=== PATIENT | male | born 1975 | race Hispanic/Latino ===

== ENCOUNTER 2020-01-05 10:22 | Emergency (ER) | payer BC, MEDICAID, SELFPAY ==
[2020-01-05 10:25] VITALS: BP 150/85; PULSE 82; RESP 16; TEMP 36.6; O2SAT 100
--- NOTE | 2020-01-05 10:56 | ED.GENADULT ---
HPI - General Adult General Chief complaint: Wound/Laceration <JOHN Villa Last Filed: 01/05/20 11:02> Stated complaint: wound right leg <JOHN Villa Last Filed: 01/05/20 11:02> Time Seen by Provider: 01/05/20 10:48 <JOHN Villa Last Filed: 01/05/20 11:02> Source: patient <JOHN Villa Last Filed: 01/05/20 11:02> Mode of arrival: ambulatory <JOHN Villa Last Filed: 01/05/20 11:02> Limitations: no limitations <JOHN Villa Last Filed: 01/05/20 11:02> History of Present Illness HPI narrative: Patient is a 44-year-old male who presents to emergency department for evaluation of wound to the posterior aspect of the right thigh been there 1 week was red tender swollen drained out purulent drainage and is now improving patient notes mild aching pain worse with palpation patient denies any fever chills nausea vomiting are immunocompromise <Tab Lin PA-C Last Filed: 01/05/20 11:02> Related Data Allergies/adverse reactions: Allergies Allergy/AdvReac Type Severity Reaction Status Date / Time No Known Allergies Allergy Verified 01/05/20 10:29 <JOHN Villa Last Filed: 01/05/20 11:02> Review of Systems Review of Systems: Narrative: CONSTITUTIONAL: Denies fever, chills, or sweats. SKIN: Positive for wound to the posterior right thigh MUSCULOSKELETAL: Denies back pain, joint pain NEUROLOGIC: Denies headache, or weakness. <JOHN Villa Last Filed: 01/05/20 11:02> [facility] Family History Family History: Family History (Updated 08/21/19 @ 05:37 by Kristina Dorman RN) Mother Obstructive sleep apnea Diabetes 1.5, managed as type 2 Hypercholesterolemia Schizo-affective schizophrenia Hypertension Father Obstructive sleep apnea no history of jose Pancreatic cancer Sibling Unknown family medical history <JOHN Villa Last Filed: 01/05/20 11:02> Social History Social History: Social History Smoking packs per day: 3 Smoking cigarettes per day: 60.0 Years smoked: 4 Smoking pack-years: 12.00 Smoking status: Current every day smoker Tobacco type: cigarettes Alcohol intake: current Substance use: current Substance use type: crack/cocaine Last use: Approximately 1 week ago Gender identity (if verbalized by the patient): Male <Tab Lin PA-C - Last Filed: 01/05/20 11:02> Exam Narrative: Exam Narrative: GENERAL: Well-appearing, well-nourished, and in no acute distress. HEAD: Normocephalic, atraumatic. EYES: PERRLA and EOMI. ENT: Nares clear, no rhinorrhea or epistaxis. Mucous membranes moist. EXTREMITIES: Normal range of motion. No edema. SKIN: Warm, dry, no rash. Patient with half centimeter open wound with small amount of purulent drainage no erythema NEURO: No focal deficits. Alert and oriented x3. Neurovascularly intact PSYCH: Normal mood and affect. <Tab Lin PA-C - Last Filed: 01/05/20 11:02> Course Course Emergency Course: Patient in the room in no distress aware of case findings treatment plan and diagnosis agreeing to follow-up as directed. Patient afebrile nontoxic-appearing no distress felt appropriate for outpatient reevaluation <Tab Lin PA-C - Last Filed: 01/05/20 11:02> Vital Signs Vital signs: Vital Signs Temperature 36.6 C 01/05/20 10:25 Pulse Rate 82 01/05/20 10:25 Respiratory Rate 16 01/05/20 10:25 Blood Pressure 150/85 H 01/05/20 10:25 Pulse Oximetry 100 01/05/20 10:25 Temperature 36.6 C 01/05/20 10:25 Pulse Rate 82 01/05/20 10:25 Respiratory Rate 16 01/05/20 10:25 Blood Pressure 150/85 H 01/05/20 10:25 Pulse Oximetry 100 01/05/20 10:25 <Tab Lin PA-C - Last Filed: 01/05/20 11:02> Vital Signs Temperature 36.6 C 01/05/20 10:25 Pulse Ra
== END 2020-01-05 11:18 | disposition home or self-care (01) ==
PROVIDERS: Emergency Provider Emergency Medicine
DX: L02.415 Cutaneous abscess of right lower limb (principal)
CPT/HCPCS: 99283

== ENCOUNTER 2023-05-30 15:25 | Observation (INO) | payer BC, SELFPAY ==
[2023-05-30] VITALS (20 sets, daily range): BP systolic 118–144; BP diastolic 53–76; PULSE 82–96; RESP 13–23; TEMP 36.3–36.8; O2SAT 97–100; BMI 28.8; BMI 28.3
--- NOTE | ~2023-05-30 | CT_ITS ---
EXAMINATION: CT abdomen pelvis w con DATE: 05/31/2023 09:11 INDICATION: Weight loss. Anemia. TECHNIQUE: Computed tomography (CT) of the abdomen and pelvis was performed with 100 mL Omnipaque 350 intravenous contrast. Automated exposure control and iterative reconstruction technique were employe d. The dose-length product was 917.74 mGy-cm. COMPARISON: None. FINDINGS: The visualized portions of the lung bases demonstrate mild atelectasis. No pleural effusion . There is a large sliding hiatal hernia. Cardiomegaly is noted. No pericardial effusion. The liver, gallbladder, pancreas, and right adrenal gland are normal. There is a 9 mm mass in left adrenal gland measuring soft tissue attenuation, likely an adenoma. The kidneys are normal. There is diverticulosi s of the colon without evidence of diverticulitis. There is focal small-caliber of the sigmoid colon. The appendix is normal. There are no pathologically enlarged lymph nodes. There is no free intraperi toneal fluid. There is a left-sided inferior vena cava. There is a right inguinal hernia containing f at. There is mild thoracic and lumbar spondylosis. IMPRESSION: 1. Focal small caliber of the sigmoid colon, which may be a transient finding or a persistent strictu re suspicious for malignancy. The patient is already scheduled for a colonoscopy. 2. Large sliding hiatal hernia. Reviewed, dictated and finalized at location A. IMPRESSION: 1. Focal small caliber of the sigmoid colon, which may be a transient finding o r a persistent stricture suspicious for malignancy. The patient is already sche duled for a colonoscopy. 2. Large sliding hiatal hernia.
--- NOTE | ~2023-05-30 | XR_ITS ---
EXAMINATION: XR UGI w barium swallow DATE: 06/01/2023 17:16 INDICATION: Gastrointestinal bleed an incomplete endoscopy. TECHNIQUE: The patient drank thick barium, gas-producing crystals, and thin barium. A total of 651 fl uoroscopic images of the esophagus, stomach, and proximal small bowel were obtained. Fluoroscopy expo sure time was 2.1 minutes. COMPARISON: CT dated 05/31/2023 FINDINGS: The esophagus is normal without mass or stricture. Esophageal motility is normal. There is a moderate-sized hiatal hernia with appearance on the current study suggesting a paraesophageal herni a however review of prior CT demonstrates the gastric esophageal junction position approximately 3 cm above level of the thoracic hiatus consistent with a sliding-type hiatal hernia but with cephalad ex tension of the herniated fundus of the stomach above level of the gastroesophageal junction. Recurren t episodes of gastroesophageal reflux of a large amount of contrast through the level of at least the mid esophagus was observed with provocative maneuvers. The stomach is otherwise normal. The proximal small bowel is normal. IMPRESSION: 1. Moderate-sized sliding-type hiatal hernia with recurrent prominent gastroesophageal reflux with pr ovocative maneuvers. Reviewed, dictated and finalized at location A. IMPRESSION: 1. Moderate-sized sliding-type hiatal hernia with recurrent prominent gastroeso phageal reflux with provocative maneuvers.
--- NOTE | ~2023-05-30 | XR_ITS ---
EXAMINATION: XR chest 2V DATE: 05/30/2023 16:00 INDICATION: Chest pain TECHNIQUE: PA and lateral views of the chest are obtained. COMPARISON: 08/20/2019 FINDINGS: The lungs are free of acute opacities. No pleural effusion or pneumothorax. The heart size is normal. There is mild thoracic spondylosis. There is a large hiatal hernia. IMPRESSION: 1. No acute cardiopulmonary abnormality. Reviewed, dictated and finalized at location A.
--- NOTE | 2023-05-30 15:28 | ECG_ITS ---
Measurements Intervals [place] Rate: 93 P: 26 TN: 168 QRS: 70 QRSD: 91 T: 36 QT: 354 QTc: 440 Interpretive Statements SINUS RHYTHM POSSIBLE RIGHT VENTRICULAR CONDUCTION DELAY [RSR (QR) IN V1/V2] COMPARED TO ECG 08/20/2019 23:19:26 NO SIGNIFICANT CHANGES Electronically Signed On 05-31-2023 11:12:22 CDT by Ellie Gates M.D.
[2023-05-30 15:41] LABS: Basophils Absolute Auto 0.1 K/mm3 (0.0-0.1); Basophils Percent Auto 0.8 % (0.2-1.2); Eosinophils Percent Auto 0.3 % (0-4.4); Hematocrit 21.7 % (42.0-52.0); Immature Granulocyte Absolute 0.02 K/mm3 (0.00-0.031); Immature Granulocyte Percent A 0.3 % (0-0.5); Lymphocytes Absolute Auto 1.03 K/mm3 (0.9-3.2); Lymphocytes Percent Auto 16.2 % (18.3-44.2); Mean Corpuscular HGB Conc 23.5 g/dl (32-36); Mean Corpuscular Hemoglobin 13.9 pg (26-34); Monocytes Absolute Auto 0.5 K/mm3 (0.1-0.6); Monocytes Percent Auto 7.4 % (2.6-8.5); Neutrophils Absolute Auto 4.8 K/mm3 (1.3-6.7); Nucleated Red Blood Cells Perc 0.3 % (0.0-0.2); Platelet Count Result 304 k/mm3 (150-375); Red Blood Count 3.68 M/mm3 (4.6-6.20); Red Cell Distribution Width 23.3 % (11.5-14.5); White Blood Count 6.4 K/mm3 (4.5-10.0)
[2023-05-30 15:50] LABS: Alanine Aminotransferase 21 U/L (6-50); Albumin Level 4.8 g/dL (3.5-5.1); Alkaline Phosphatase 46 U/L (38-126); Anion Gap 11 mmol/L (8-16); Aspartate Amino Transferase 23 U/L (17-59); Bilirubin,Total 0.7 mg/dL (0.2-1.3); Blood Urea Nitrogen 11 mg/dL (9-20); Carbon Dioxide 22 mmol/L (22-30); Chloride 105 mmol/L (98-107); Estimated Glomerular Filt Rate > 60; Glucose 90 mg/dL (65-110); Lipase 127 U/L (23-300); Sodium 138 mmol/L (137-145)
[2023-05-30 15:52] LABS: Hemoglobin 5.1 g/dL (14.0-18.0)
[2023-05-30 16:01] LABS: Troponin I < 0.012 ng/mL (0.000-0.034)
[2023-05-30 16:02] LABS: Partial Thromboplastin Time 28.8 SECONDS (22.3-36.8)
[2023-05-30 16:09] LABS: Platelet Estimate Adequate (Adequate)
[2023-05-30 16:12] LABS: Anisocytosis 3+ (NORMAL); Hypochromasia 2+ (NORMAL); Schistocytes None Seen (NORMAL)
[2023-05-30 16:13] LABS: Microcytosis 2+ (NORMAL)
--- NOTE | 2023-05-30 16:57 | ED.GENADULT ---
HPI - General Adult General Chief complaint: Chest Pain Stated complaint: high blood pressure/chest pressure/decreased visio Time Seen by Provider: 05/30/23 16:29 History of Present Illness HPI narrative: Patient is a 48-year-old male who presents ER with reports of high blood pressure and chest discomfort. Patient reports a couple days ago he had some cramping left-sided chest pain as well as pain in his right back and shoulder. Eugene like muscle cramps. He also reports he has had increased heartburn in his epigastrium for last couple of weeks but its been a chronic issue and he tries to avoid spicy food. No dark black stools. No syncope. No exertional dyspnea. Patient has history of anemia. He did complete a anemia work-up. He no longer takes iron. Related Data Allergies Allergy/AdvReac Type Severity Reaction Status Date / Time No Known Allergies Allergy Verified 01/05/20 10:29 Review of Systems Review of Systems: All systems reviewed & are unremarkable except as noted in HPI and below Constitutional: Constitutional: Denies chills and Denies fever(s) ENT: Denies nasal congestion and Denies sore throat Cardiovascular: Cardiovascular: Reports chest pain, Denies rapid heart rate and Denies radiating jaw, neck or arm pain Respiratory: Respiratory: Denies cough and Denies dyspnea Gastrointestinal: Gastrointestinal: Denies abdominal pain, Reports heartburn, Denies diarrhea, Denies nausea and Denies vomiting Musculoskeletal: Musculoskeletal: Reports back pain, Denies arthralgias, Denies joint swelling and Reports muscle cramps Neurologic: Denies syncope, Denies focal weakness and Denies numbness PMFSH Past Medical History Medical History (Updated 05/30/23 @ 18:45 by Enrique Ceballos MD) Anemia Surgical History Surgical History (Updated 05/30/23 @ 18:45 by Enrique Ceballos MD) No pertinent past surgical history Family History Family History (Updated 08/21/19 @ 05:37 by Kristina Dorman RN) Mother Obstructive sleep apnea Diabetes 1.5, managed as type 2 Hypercholesterolemia Schizo-affective schizophrenia Hypertension Father Obstructive sleep apnea no history of jose Pancreatic cancer Sibling Unknown family medical history Social History Social History Smoking packs per day: 3 Smoking cigarettes per day: 60.0 Years smoked: 4 Smoking pack-years: 12.00 Smoking status: Current every day smoker Tobacco type: cigarettes Alcohol intake: current Alcohol use details: socially Substance use: current Substance use type: crack/cocaine Last use: Approximately 1 week ago Gender identity (if verbalized by the patient): Male Exam Narrative: GENERAL: Well-appearing, well-nourished, and in no acute distress. HEAD: Normocephalic, atraumatic. EYES: PERRL and EOMI. ENT: Mucous membranes moist. CHEST: Clear to auscultation. No respiratory distress. HEART: Regular rate and rhythm. Normal peripheral pulses. ABDOMEN: Soft, nontender, nondistended, Hemoccult positive stool without gross blood. EXTREMITIES: Normal range of motion. No edema. SKIN: Warm, dry, pale, no rash. NEURO: Alert and oriented x3. PSYCH: Normal mood and affect. Course Course Emergency Course: Patient resting comfortably. Discussed lab results. Admit to the hospitalist service. Blood transfusion ordered. I have also consulted GI. Patient will be on a clear liquid diet and will be n.p.o. at midnight. Vital Signs Vital signs: Vital Signs Temperature 98.2 F 05/30/23 16:04 Pulse Rate 92 05/30/23 16:04 Respiratory Rate 16 05/30/23 16:04 Blood Pressure 144/67 H 05/30/23 16:04 Pulse Oximetry 100 05/30/23 16:04 Oxygen Delivery Room Air 05/30/23 16:04 Temperature 98.2 F 05/30/23 16:04 Pulse Rate 85 05/30/23 17:58 Respiratory Rate 17 05/30/23 17:58 Blood Pressure 118/56 L 05/30/23 17:58 Pulse Oximetry
[2023-05-30] MEDS: PANTOPRAZOLE SODIUM IV 40 MG VIAL IV PUSH ×2 (17:15→21:45)
[2023-05-30] MEDS: ASPIRIN 81 MG CHEWABLE TABLET 324 MG PO (17:15)
--- NOTE | 2023-05-30 18:49 | ADMGEN ---
This patient, Satya Felton, was admitted to [facility] Surg Room 303-01. Patient/family oriented to hospital policies and general routines including ID bracelet, bed and alarms, visiting hours, pain management, procedures, bathroom and other care routines, personal items, smoking policy, room service/diet, and visiting hours. Information on how to activate the Rapid Response Team has been discussed. Patient/Family are encouraged to report perceived risks to care and to ask questions if they do not understand what they are told or what they should do.
--- NOTE | 2023-05-30 20:04 | PM.IMHP ---
H&P: HPI History of Present Illness Date/Time: 05/30/23 20:04 Chief Complaint: chest pain Narrative: This is a 47-year-old male patient who used to drink heavily in the past but stated he has not drank any alcohol since this past October. Patient also stated that he used to use drugs including methamphetamines but has stop using methamphetamines this year .the patient has a history of hypertension but is not on any medication. the patient has been having some left-sided chest pain that has been going on for the last couple days. he felt like he has been having muscle cramps. the patient feels like he may have acid feflux and has been trying to avoid spicy food recently no dark stools no syncope no exertional dyspnea he does have a history of anemia and he did have anemia workup in the past and no longer takes iron. His H&H was initially 5.1 and 21.6. repeat H&H is 4.5 and 19.8. Patient was typed and cross-matched any emergent but no blood transfusion was ordered. i did order him some blood when I assessed him and ordered a full anemia panel. The patient stated that he lost 15 lb this past year but is not having any abdominal pain. The patient is pale and he stated that he sometimes gets blisters on his arms that pop up for for no reason. The patient asked for an hiv screen and std screening. He is not on any anticoagulation. he is being admitted to observation status on 05/30/2023 Review of Systems Review of Systems: All systems reviewed & are unremarkable except as noted in HPI and below Constitutional: Constitutional: Reports as per HPI and Reports no additional constitutional complaints Eyes: Eyes: Reports as per HPI and Reports no additional eye complaints ENT: Reports system reviewed and no additional complaints, except as documented and Reports Normal hearing present Cardiovascular: Cardiovascular: Reports no additional cardiovascular complaints Respiratory: Respiratory: Reports no additional respiratory complaints and Reports no additional respiratory complaints Gastrointestinal: Gastrointestinal: Reports as per HPI and Reports no additional gastrointestinal complaints Musculoskeletal: Musculoskeletal: Reports no additional musculoskeletal complaints Integumentary/Breasts: Skin/Breast: Reports system reviewed and no additional complaints, except as docu and Reports as per HPI Neurologic: Reports system reviewed and no additional complaints, except as documented, Reports as per HPI and Reports Normal hearing present Psychiatric: Psychiatric: Reports no additional psychiatric complaints and Reports as per HPI Endocrine: Endocrine: Reports no additional endocrine complaints Hematologic/Lymphatic: Hematologic/Lymphatic: Reports no additional hematologic/lymphatic complaints Allergic/Immunologic: Allergic/Immunologic: Reports no additional allergic/immunologic complaints [facility] Past Medical History Medical History (Updated 05/31/23 @ 00:35 by Amarilis Boswell NP) Anemia History of alcohol abuse History of amphetamine abuse HTN (hypertension), benign Surgical History Surgical History (Updated 05/30/23 @ 18:45 by Enrique Ceballos MD) No pertinent past surgical history Family History Family History Mother Obstructive sleep apnea Diabetes 1.5, managed as type 2 Hypercholesterolemia Schizo-affective schizophrenia Hypertension Father Obstructive sleep apnea no history of jose Pancreatic cancer Sibling Unknown family medical history Social History Social History (Updated 05/31/23 @ 00:36 by Amarilis Boswell NP) Social History: He is single and lives with his mother to help take care of his mother and his brother also lives with him as well. 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
[2023-05-30 23:30] LABS: Basophils Percent Auto 0.8 % (0.2-1.2); Eosinophils Absolute Auto 0.1 K/mm3 (0-0.3); Eosinophils Percent Auto 1.1 % (0-4.4); Immature Granulocyte Absolute 0.01 K/mm3 (0.00-0.031); Immature Granulocyte Percent A 0.2 % (0-0.5); Immature Platelet Fraction Pct 4.5 % (0.9-11.2); Immature Reticulocyte Fraction 21.9 % (3.0-15.9); Lymphocytes Absolute Auto 1.37 K/mm3 (0.9-3.2); Lymphocytes Percent Auto 26.2 % (18.3-44.2); Mean Corpuscular HGB Conc 22.7 g/dl (32-36); Mean Corpuscular Hemoglobin 13.4 pg (26-34); Mean Corpuscular Volume 58.8 fl (80-100); Monocytes Absolute Auto 0.4 K/mm3 (0.1-0.6); Neutrophils Absolute Auto 3.3 K/mm3 (1.3-6.7); Neutrophils Percent Auto 63.7 % (45.5-73.1); Platelet Count Result 264 k/mm3 (150-375); Red Blood Count 3.37 M/mm3 (4.6-6.20); Reticulocyte Hemoglobin Conten 12.5 pg (28.2-35.7); Reticulocyte Percent 1.72 % (0.7-4.3); Reticulocytes Absolute 0.06 M/mm3 (0.02-0.1); White Blood Count 5.2 K/mm3 (4.5-10.0)
[2023-05-30 23:33] LABS: Bilirubin,Total 0.6 mg/dL (0.2-1.3); Lactate Dehydrogenase 103 U/L (120-246)
[2023-05-30 23:42] LABS: Transferrin 297 mg/dL (206-381)
[2023-05-30] MEDS: SODIUM CHLORIDE 0.9% IV 250 ML 30 ML IV CONT (23:43)
[2023-05-30 23:53] LABS: Hematocrit 19.8 % (42.0-52.0); Hemoglobin 4.5 g/dL (14.0-18.0)
[2023-05-31] VITALS (20 sets, daily range): BP systolic 110–136; BP diastolic 53–76; PULSE 66–83; RESP 13–18; TEMP 36.1–36.8; O2SAT 100
[2023-05-31 00:12] LABS: Anisocytosis 2+ (NORMAL); Hypochromasia 2+ (NORMAL); Microcytosis 2+ (NORMAL); Platelet Estimate Adequate (Adequate); Schistocytes None Seen (NORMAL)
[2023-05-31 00:41] LABS: Folic Acid 11.3 ng/mL (2.76->20)
[2023-05-31 01:10] LABS: Iron 15 ug/dL (49-181)
[2023-05-31 01:20] LABS: Percent Iron Saturation 3 % (20-50)
[2023-05-31 01:47] LABS: Ferritin 2.65 ng/mL (17.9-464)
[2023-05-31] MEDS: FAMOTIDINE 20 MG/2 ML VIAL IV PUSH ×3 (02:46→21:29)
--- NOTE | 2023-05-31 07:12 | WPDGICN ---
Assessment and Plan Assessment and plan (1) Iron deficiency anemia: Code(s): D50.9 - Iron deficiency anemia, unspecified Status: Acute Assessment and Plan: He states that he was told a few years ago that he was slightly anemic but nothing was done about it. He is certain he has not had a blood transfusion. He has not seen blood in his stools. He is not aware of any family history of anemia. (2) Occult GI bleeding: Code(s): R19.5 - Other fecal abnormalities Status: Acute Assessment and Plan: His severe microcytic anemia and low iron suggest chronic gastrointestinal blood loss. We will schedule him for EGD and colonoscopy to be done tomorrow. (3) Obesity: Code(s): E66.9 - Obesity, unspecified Status: Acute Assessment and Plan: His weight he states is stable. (4) Tobacco abuse: Code(s): Z72.0 - Tobacco use Status: Acute Assessment and Plan: He has been a smoker and had abused other drugs as well including methamphetamine. He states he drink a lot until earlier this year. Plan Begin IV fluids. Start bowel prep for colonoscopy with EGD to be done tomorrow. Keep hemoglobin over 7. GI Consult Note Consult date/time: 05/31/23 07:12 HPI: Satya Felton is a 48 year old male who presented to the emergency room yesterday with complaints of chest pain on the left side. He was found to be markedly anemic with a hemoglobin initially of 5 and repeat was 4.5. The only 1 we have to compare that to was from 4 years ago when he had a hemoglobin of 8.9. He denies seeing blood in his stools. He denies black or tarry stools. He does not use NSAIDs. He states he does get heartburn frequently and was actually wondering what he should eat to avoid it. He occasionally takes Prilosec OTC which helps. He denies dysphagia. Denies weight loss. He has no abdominal pain. No history of liver disease or other gastrointestinal issues. He had a colonoscopy somewhere in [place] he believes about 5 years ago and cannot recall why that was done. He received 2 units of blood last night. Repeat H&H is not available. I noticed that he does not have IV fluids and he is NPO. He is quite thirsty. Review of Systems Review of Systems: All systems reviewed & are unremarkable except as noted in HPI and below PMFSH Past Medical History Medical History Anemia History of alcohol abuse History of amphetamine abuse HTN (hypertension), benign Surgical History Surgical History No pertinent past surgical history Family History Family History Mother Obstructive sleep apnea Diabetes 1.5, managed as type 2 Hypercholesterolemia Schizo-affective schizophrenia Hypertension Father Obstructive sleep apnea no history of jose Pancreatic cancer Sibling Unknown family medical history Social History Social History Social History: He is single and lives with his mother to help take care of his mother and his brother also lives with him as well. 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 Last use: Approximately 1 week ago charted by ED. Lack of Transportation: YES Lack of Food: Never True
[2023-05-31 07:57] LABS: Basophils Absolute Auto 0.1 K/mm3 (0.0-0.1); Basophils Percent Auto 1.1 % (0.2-1.2); Eosinophils Absolute Auto 0.1 K/mm3 (0-0.3); Eosinophils Percent Auto 1.3 % (0-4.4); Hematocrit 24.4 % (42.0-52.0); Immature Granulocyte Absolute 0.01 K/mm3 (0.00-0.031); Immature Granulocyte Percent A 0.2 % (0-0.5); Immature Platelet Fraction Pct 4.2 % (0.9-11.2); Lymphocytes Absolute Auto 0.92 K/mm3 (0.9-3.2); Lymphocytes Percent Auto 19.4 % (18.3-44.2); Mean Corpuscular HGB Conc 24.6 g/dl (32-36); Mean Corpuscular Hemoglobin 15.6 pg (26-34); Mean Corpuscular Volume 63.4 fl (80-100); Monocytes Absolute Auto 0.4 K/mm3 (0.1-0.6); Monocytes Percent Auto 8.6 % (2.6-8.5); Neutrophils Absolute Auto 3.3 K/mm3 (1.3-6.7); Neutrophils Percent Auto 69.4 % (45.5-73.1); Nucleated Red Blood Cells Perc 0.4 % (0.0-0.2); Platelet Count Result 258 k/mm3 (150-375); Red Blood Count 3.85 M/mm3 (4.6-6.20); Red Cell Distribution Width 26.5 % (11.5-14.5); White Blood Count 4.8 K/mm3 (4.5-10.0)
[2023-05-31 08:08] LABS: Lactic Acid Reflex 0.7 mmol/L (0.7-2.0)
[2023-05-31 08:18] LABS: Alanine Aminotransferase 19 U/L (6-50); Albumin Level 4.2 g/dL (3.5-5.1); Alkaline Phosphatase 44 U/L (38-126); Anion Gap 7 mmol/L (8-16); Aspartate Amino Transferase 24 U/L (17-59); Bilirubin,Total 0.8 mg/dL (0.2-1.3); Blood Urea Nitrogen 10 mg/dL (9-20); Calcium 8.7 mg/dL (8.4-10.2); Carbon Dioxide 25 mmol/L (22-30); Chloride 106 mmol/L (98-107); Estimated CRCL calculation 102 ml/min; Estimated Glomerular Filt Rate > 60; Glucose 86 mg/dL (65-110); Magnesium 1.8 mg/dL (1.6-2.3); Potassium 3.9 mmol/L (3.4-5.0); Sodium 138 mmol/L (137-145)
[2023-05-31] MEDS: SODIUM CHLORIDE 0.9% IV 1,000 ML 100 ML IV CONT (08:48)
[2023-05-31] MEDS: PANTOPRAZOLE SODIUM IV 40 MG VIAL IV PUSH ×2 (08:49→21:28)
[2023-05-31 08:52] LABS: HIV 1/2 Ab P24 Ag Result Negative (Negative)
[2023-05-31 08:53] LABS: Platelet Estimate Adequate (Adequate)
[2023-05-31 08:54] LABS: Anisocytosis 2+ (NORMAL); Hypochromasia 1+ (NORMAL); Ovalocytes 1+ (NORMAL); Poikilocytosis 2+ (NORMAL); Tear Drop Cells 1+ (NORMAL)
[2023-05-31 08:55] LABS: Large Platelets Present; Schistocytes Rare (NORMAL)
[2023-05-31] MEDS: BISACODYL 5 MG TABLET EC 10 MG PO ×3 (12:13→21:28)
--- NOTE | 2023-05-31 13:32 | PM.IMPN ---
Progress Note: A&P Assessment and Plan (1) Anemia: Code(s): D64.9 - Anemia, unspecified Status: Acute Assessment and Plan: Patient presented to the ED due to shortness of breath and fatigue, he has beend losing weight w/o trying. He was found to have H&H of 5.1/21.7. Patient received 2 units of blood and repeat H&H was 6/24.4 then 2 more units were ordered GI has been consulted. h and h every 6h. Low iron, % saturation and ferritin. Normal B12, folate, TSH, TIBC and transferrin. CT abdomen pelvis revealing focal small caliber of sigmoid colon which may be transient finding or a persistent stricture suspicious for malignancy. EGD colonoscopy planned for tomorrow. (2) Occult GI bleeding: Code(s): R19.5 - Other fecal abnormalities Status: Acute Assessment and Plan: GI has been consulted. h and h every 6h. (3) Tobacco abuse: Code(s): Z72.0 - Tobacco use Status: Acute Assessment and Plan: He has been counseled on smoking cessation for approximately 5 minutes Subjective Date/time seen: 05/31/23 13:32 Interval history: Patient states that he has been having intermittent fatigue and shortness a breath since end of 2021. It has gotten progressively worse. He denies any melena or hematochezia in the stool. He does get intermittent chest pain that he describes as heartburn. He has not had any changes in caliber of stool but has had weight loss. Patient feeling better since he has gotten blood transfusion. Plan for colonoscopy and EGD tomorrow Exam Narrative: GENERAL: Comfortable, no acute distress HENMT: moist mucous membranes EYES: EOM intact b/l NECK: no lymphadenopathy RESPIRATORY: clear to auscultation CARDIO: RRR GI: soft, nontender, bowel sounds present SKIN: no rashes EXTREMITIES: no edema, redness or tenderness Objective Data Vital Signs Vital Signs: Vital Signs - 24 hr 05/30/23 16:04 05/30/23 16:27 05/30/23 16:29 Temperature 98.2 F Pulse Rate 92 96 85 Respiratory Rate 16 23 H 16 Blood Pressure 144/67 H 132/75 Pulse Oximetry 100 100 Oxygen Delivery Room Air 05/30/23 16:30 05/30/23 16:31 05/30/23 16:45 Temperature Pulse Rate 87 83 89 Respiratory Rate 13 21 H 23 H Blood Pressure 123/68 Pulse Oximetry 100 97 Oxygen Delivery 05/30/23 16:46 05/30/23 17:00 05/30/23 17:01 Temperature Pulse Rate 86 89 87 Respiratory Rate 16 17 18 Blood Pressure 131/63 140/67 Pulse Oximetry 100 100 Oxygen Delivery 05/30/23 17:02 05/30/23 17:21 05/30/23 17:22 Temperature Pulse Rate 89 92 89 Respiratory Rate 21 H 20 16 Blood Pressure 141/76 H Pulse Oximetry 100 100 Oxygen Delivery 05/30/23 17:30 05/30/23 17:31 05/30/23 17:45 Temperature Pulse Rate 82 82 82 Respiratory Rate 16 18 20 Blood Pressure 127/66 Pulse Oximetry 100 100 100 Oxygen Delivery 05/30/23 17:46 05/30/23 17:58 05/30/23 18:37 Temperature Pulse Rate 82 85 Respiratory Rate 15 17 Blood Pressure 118/56 L 118/56 L Pulse Oximetry 100 100 Oxygen Delivery Room Air 05/30/23 18:44 05/30/23 20:30 05/30/23 20:00 Temperature 97.5 F L 97.4 F L Pulse Rate 83 84 84 Respiratory Rate 20 16 16 Blood Pressure 133/53 L 120/58 L Pulse Oximetry 100 100 100 Oxygen Delivery Room Air 05/31/23 00:05 05/31/23 00:24 05/31/23 01:24 Temperature 97.4 F L 97.3 F L 97.5 F L Pulse Rate 83 79 75 Respiratory Rate 18 18 16 Blood Pressure 126/60 126/67 124/61 Pulse Oximetry 100 100 100 Oxygen Delivery 05/31/23 02:15 05/31/23 02:44 05/31/23 03:00 Temperature 97.2 F L 97.5 F L 97.1 F L Pulse Rate 73 73 78 Respiratory Rate 16 16 16 Blood Pressure 117/55 L 113/53 L 110/60 Pulse Oximetry 100 100 100 Oxygen Delivery 05/31/23 04:00 05/31/23 05:00 05/31/23 10:45 Temperature 97.8 F 97.1 F L 97.7 F Pulse Rate 75 77 82 Respiratory Rate 16 18 16 Blood Pressure 116/62 125/62 111/74 Pulse Oximetr
[2023-05-31 14:56] LABS: Rapid Plasma Reagin Non-Reactive (NonReactive)
[2023-05-31] MEDS: polyethylene glycoL 3350 238 GM BOTTLE PO (16:11)
[2023-05-31 19:41] LABS: IFOB Positive Control Positive; Immunochemical Fecal Occult Bl Negative (N)
[2023-05-31 20:24] LABS: Hemoglobin 8.6 g/dL (14.0-18.0)
[2023-06-01] VITALS (8 sets, daily range): BP systolic 116–141; BP diastolic 44–86; PULSE 66–77; RESP 13–24; TEMP 35.9–36.4; O2SAT 93–100
[2023-06-01] MEDS: SODIUM CHLORIDE 0.9% IV 1,000 ML 100 ML IV CONT (01:36)
[2023-06-01 02:00] LABS: Hematocrit 32.9 % (42.0-52.0); Hemoglobin 8.8 g/dL (14.0-18.0); Immature Platelet Fraction Pct 4.1 % (0.9-11.2); Mean Corpuscular HGB Conc 26.7 g/dl (32-36); Mean Corpuscular Hemoglobin 18.1 pg (26-34); Mean Corpuscular Volume 67.6 fl (80-100); Platelet Count Result 282 k/mm3 (150-375); Red Blood Count 4.87 M/mm3 (4.6-6.20); Red Cell Distribution Width 29.4 % (11.5-14.5); White Blood Count 7.3 K/mm3 (4.5-10.0)
[2023-06-01 02:14] LABS: Alanine Aminotransferase 19 U/L (6-50); Albumin Level 4.7 g/dL (3.5-5.1); Alkaline Phosphatase 46 U/L (38-126); Anion Gap 11 mmol/L (8-16); Aspartate Amino Transferase 21 U/L (17-59); Bilirubin,Total 1.4 mg/dL (0.2-1.3); Blood Urea Nitrogen 8 mg/dL (9-20); Calcium 9.1 mg/dL (8.4-10.2); Carbon Dioxide 24 mmol/L (22-30); Chloride 105 mmol/L (98-107); Estimated CRCL calculation 92 ml/min; Estimated Glomerular Filt Rate > 60; Glucose 91 mg/dL (65-110); Potassium 3.8 mmol/L (3.4-5.0); Sodium 140 mmol/L (137-145)
[2023-06-01] MEDS: MAGNESIUM CITRATE 300 ML BTL 180 ML PO (04:37)
[2023-06-01] MEDS: PANTOPRAZOLE SODIUM IV 40 MG VIAL IV PUSH (08:56)
[2023-06-01] MEDS: FAMOTIDINE 20 MG/2 ML VIAL IV PUSH ×2 (08:56→20:30)
--- NOTE | 2023-06-01 11:33 | PM.IMPN ---
Progress Note: A&P Assessment and Plan (1) Anemia: Code(s): D64.9 - Anemia, unspecified Status: Acute Assessment and Plan: Patient presented to the ED due to shortness of breath and fatigue, he has beend losing weight w/o trying. He was found to have H&H of 5.1/21.7. Patient received 2 units of blood and repeat H&H was 6/24.4 then 2 more units were ordered GI has been consulted. h and h every 6h. Low iron, % saturation and ferritin. Normal B12, folate, TSH, TIBC and transferrin. CT abdomen pelvis revealing focal small caliber of sigmoid colon which may be transient finding or a persistent stricture suspicious for malignancy. 06/01/2023 Patient hemoglobin today is 8.0. Will monitor closely. Patient scheduled for GI workup today. (2) Occult GI bleeding: Code(s): R19.5 - Other fecal abnormalities Status: Acute Assessment and Plan: GI has been consulted. Hemoglobin today is 8.0. Monitor closely. (3) Tobacco abuse: Code(s): Z72.0 - Tobacco use Status: Acute Assessment and Plan: He has been counseled on smoking cessation for approximately 5 minutes by admitting physician Subjective Date/time seen: 06/01/23 11:33 Interval history: Patient was seen during the morning rounds today. Patient still has generalized weakness. Patient denies any shortness of breath or chest pain. No abdominal pain, nausea no vomiting. Mood stable. Review of Systems Review of Systems: All systems reviewed & are unremarkable except as noted in HPI and below Constitutional: Constitutional: Reports as per HPI and Reports no additional constitutional complaints Eyes: Eyes: Reports as per HPI and Reports no additional eye complaints ENT: Reports system reviewed and no additional complaints, except as documented and Reports Normal hearing present Cardiovascular: Cardiovascular: Reports no additional cardiovascular complaints Respiratory: Respiratory: Reports no additional respiratory complaints and Reports no additional respiratory complaints Gastrointestinal: Gastrointestinal: Reports as per HPI and Reports no additional gastrointestinal complaints Musculoskeletal: Musculoskeletal: Reports no additional musculoskeletal complaints Integumentary/Breasts: Skin/Breast: Reports system reviewed and no additional complaints, except as docu and Reports as per HPI Neurologic: Reports system reviewed and no additional complaints, except as documented, Reports as per HPI and Reports Normal hearing present Psychiatric: Psychiatric: Reports no additional psychiatric complaints and Reports as per HPI Endocrine: Endocrine: Reports no additional endocrine complaints Hematologic/Lymphatic: Hematologic/Lymphatic: Reports no additional hematologic/lymphatic complaints Allergic/Immunologic: Allergic/Immunologic: Reports no additional allergic/immunologic complaints Exam Narrative: GENERAL: Comfortable, no acute distress HENMT: moist mucous membranes EYES: EOM intact b/l NECK: no lymphadenopathy RESPIRATORY: clear to auscultation CARDIO: RRR GI: soft, nontender, bowel sounds present SKIN: no rashes EXTREMITIES: no edema, redness or tenderness Const: General: cooperative, healthy appearing, comfortable, no acute distress, well developed, awake, Physically active, average body habitus and well nourished Nutritional Appearance: average body habitus and well nourished Orientation/consciousness: oriented to person, oriented to place, oriented to time and patient oriented x3 Limitations: no limitations HENMT: Head: normal to inspection, No palpable skull fracture present, normocephalic, atraumatic and abrasion Ears: hearing grossly normal bilaterally and external ears normal Face/Nose/Sinus: Normal external nose present and Normal nares present Eyes: General: appearance normal, both eyes and all related structures Alignment and Position: alignment normal Periorbital: perior
--- NOTE | 2023-06-01 13:37 | WPDANESEPPF ---
Anes - Initial Pre Proc Eval Procedure: Operation Date: 06/01/23 15:00 Proposed Procedures p Esophagogastroduodenoscopy & Colonoscopy - Bar Shipman MD Date/Time: 06/01/23 13:37 Surgeon: Trent Petit MD Pre Op Diagnosis: Anemia/Accult GI Bleed Patient Data Age: 48 Gender: M Height: 1.85 m Weight: 97.4 kg Last Vital Signs Temp 36.1 C L 06/01/23 05:22 Pulse 75 06/01/23 05:22 Resp 13 06/01/23 05:22 BP 123/80 06/01/23 05:22 Pulse Ox 100 06/01/23 09:01 O2 Del Method Room Air 06/01/23 09:01 Allergies Allergy/AdvReac Type Severity Reaction Status Date / Time No Known Allergies Allergy Verified 06/01/23 13:28 Home Medications Medication Instructions Recorded Confirmed Type No Home Medications 05/30/23 05/30/23 History Laboratory Tests 05/30/23 05/31/23 05/31/23 16:28 07:44 19:17 WBC RBC Hgb Hct MCV MCH MCHC RDW Plt Count MPV % Immature Plt Fraction Sodium Potassium Chloride Carbon Dioxide Anion Gap BUN Creatinine Estim Creat Clear Calc Estimated GFR Glucose Calcium Total Bilirubin AST ALT Alkaline Phosphatase Total Protein Albumin Stl Occult Blood (IFOB) Negative (N) RPR Non-reactive (NonReactive) Blood Type B Positive Antibody Screen Negative Crossmatch See Detail 05/31/23 06/01/23 06/01/23 20:11 01:50 09:26 WBC 7.3 K/mm3 (4.5-10.0) RBC 4.87 M/mm3 (4.6-6.20) Hgb 8.6 L g/dL 8.8 L g/dL 8.0 L g/dL (14.0-18.0) (14.0-18.0) (14.0-18.0) Hct 32.0 L % 32.9 L % 29.0 L % (42.0-52.0) (42.0-52.0) (42.0-52.0) MCV 67.6 L D fl (80-100) MCH 18.1 L D pg (26-34) MCHC 26.7 L g/dl (32-36) RDW 29.4 H % (11.5-14.5) Plt Count 282 k/mm3 (150-375) MPV TNP % Immature Plt Fraction 4.1 % (0.9-11.2) Sodium 140 mmol/L (137-145) Potassium 3.8 mmol/L (3.4-5.0) Chloride 105 mmol/L (98-107) Carbon Dioxide 24 mmol/L (22-30) Anion Gap 11 mmol/L (8-16) BUN 8 L mg/dL (9-20) Creatinine 1.00 mg/dL (0.7-1.3) Estim Creat Clear Calc 92 ml/min Estimated GFR > 60 (59 - ) Glucose 91 mg/dL (65-110) Calcium 9.1 mg/dL (8.4-10.2) Total Bilirubin 1.4 H mg/dL (0.2-1.3) AST 21 U/L (17-59) ALT 19 U/L (6-50) Alkaline Phosphatase 46 U/L (38-126) Total Protein 8.0 g/dL (6.3-8.2) Albumin 4.7 g/dL (3.5-5.1) Stl Occult Blood (IFOB) RPR Blood Type Antibody Screen Crossmatch Patient hx anesthesia problems: none Family hx anesthesia problems: none Results Review: All pre-operative results and documents have been reviewed as part of the pre-operative evaluation. [facility] Past Medical History Medical History Anemia History of alcohol abuse History of amphetamine abuse HTN (hypertension), benign Surgical History Surgical History No pertinent past surgical history Family History Family History Mother Obstructive sleep apnea Diabetes 1.5, managed as type 2 Hypercholesterolemia Schizo-affective schizophrenia Hypertension Father Obstructive sleep apnea no history of jose Pancreatic cancer Sibling Unknown family medical history Social Hi
[2023-06-01] MEDS: LACTATED RINGERS 1,000 ML 150 ML IV CONT (13:39)
--- NOTE | 2023-06-01 14:48 | SUR.OPER ---
EGD end 1443 Colonoscopy start 1144
[2023-06-02 05:32] VITALS: BP 108/45; PULSE 60; RESP 13; TEMP 36.1; O2SAT 100
[2023-06-02 06:32] LABS: Hematocrit 32.8 % (42.0-52.0); Hemoglobin 8.7 g/dL (14.0-18.0); Immature Platelet Fraction Pct 5.1 % (0.9-11.2); Mean Corpuscular HGB Conc 26.5 g/dl (32-36); Mean Corpuscular Volume 67.9 fl (80-100); Platelet Count Result 231 k/mm3 (150-375); Red Blood Count 4.83 M/mm3 (4.6-6.20); Red Cell Distribution Width 29.5 % (11.5-14.5); White Blood Count 7.8 K/mm3 (4.5-10.0)
[2023-06-02] MEDS: FAMOTIDINE 20 MG/2 ML VIAL IV PUSH (09:31)
--- NOTE | 2023-06-02 12:23 | WPDGIPROGNO ---
Progress Note: A&P Assessment and Plan (1) Iron deficiency anemia: Code(s): D50.9 - Iron deficiency anemia, unspecified Status: Acute Assessment and Plan: He states that he was told a few years ago that he was slightly anemic but nothing was done about it. He is certain he has not had a blood transfusion. He has not seen blood in his stools. He is not aware of any family history of anemia. (2) Occult GI bleeding: Code(s): R19.5 - Other fecal abnormalities Status: Acute Assessment and Plan: His severe microcytic anemia and low iron suggest chronic gastrointestinal blood loss. We will schedule him for EGD and colonoscopy to be done tomorrow. (3) Obesity: Code(s): E66.9 - Obesity, unspecified Status: Acute Assessment and Plan: His weight he states is stable. (4) Tobacco abuse: Code(s): Z72.0 - Tobacco use Status: Acute Assessment and Plan: He has been a smoker and had abused other drugs as well including methamphetamine. He states he drink a lot until earlier this year. Plan Begin IV fluids. Start bowel prep for colonoscopy with EGD to be done tomorrow. Keep hemoglobin over 7. Subjective Date/time seen: 06/02/23 12:23 He is feeling good. Tolerating regular diet. No gastrointestinal complaints. I went over the results of his EGD colonoscopy with him. The upper GI did confirm a sliding and possibly paraesophageal hiatal hernia. Nothing else abnormal. Exam Const: General: cooperative and healthy appearing Orientation/consciousness: patient oriented x3 HENMT: Head: normal to inspection Ears: hearing grossly normal bilaterally Mouth: Yes Normal oral and palatal mucosa present Eyes: General: appearance normal, both eyes and all related structures Neck: Neck: normal visual inspection Chest: Chest palpation & inspection: normal inspection of the chest Resp: Effort & Inspection: normal respiratory effort Auscultation: clear to auscultation bilaterally Cardio: Rate: regular rate Rhythm: regular rhythm GI: Inspection: normal to inspection Auscultation: normal bowel sounds Skin: General skin exam: normal color and no jaundice Neuro: General: patient oriented x3 Speech: normal speech Objective Data Vital Signs Vital Signs: Vital Signs - 24 hr 06/01/23 13:36 06/01/23 15:00 06/01/23 15:10 Temperature 35.9 C L Pulse Rate 76 77 70 Respiratory Rate 20 24 H 16 Blood Pressure 141/44 H 133/68 116/75 Pulse Oximetry 100 100 100 Oxygen Delivery Room Air Room Air Room Air 06/01/23 15:20 06/01/23 17:30 06/01/23 21:31 Temperature 36.4 C L Pulse Rate 69 72 66 Respiratory Rate 16 16 14 Blood Pressure 119/74 132/86 131/69 Pulse Oximetry 100 100 100 Oxygen Delivery Room Air 06/02/23 05:32 06/02/23 08:00 Temperature 36.1 C L Pulse Rate 60 Respiratory Rate 13 Blood Pressure 108/45 L Pulse Oximetry 100 Oxygen Delivery Room Air Intake/Output Intake/Output: Intake & Output 05/30/23 05/31/23 06/01/23 06/02/23 23:59 23:59 23:59 23:59 Intake Total 3558 1130 990 Output Total 2400 Balance 1158 1130 990 Meds/Results Medications: Active Medications Generic Name Dose Route Start Last Admin Trade Name Freq PRN Reason Stop Dose Admin Acetaminophen 650 mg 05/30/23 17:00 Acetaminophen 325 Mg Tablet PO Q4H PRN Mild Pain (1-3) or Fever Hydrocodone Bitart/Acetaminophen 1 tab 05/30/23 17:00 Hydrocodone/Acetaminophen (*Crx) 5-325 Mg Tablet PO Q4H PRN Pain Rated 4-6 Famotidine 20 mg 05/31/23 09:00 06/02/23 09:31 Famotidine 20 Mg/2 Ml Vial IV PUSH 20 mg Q12HR RONALD Administration Iron Sucrose 200 mg/ Sodium 60 mls @ 120 mls/hr 06/02/23 12:30 Chloride IVPB 06/02/23 12:59 ONCE ONE Ondansetron HCl 4 mg 05/30/23 17:00 Ondansetron Inj 4 Mg/2 Ml Vial IV PUSH Q4H PRN Nausea Radiology Results: ITS Impressions Chest X-Ray 05/30/23
--- NOTE | 2023-06-02 12:42 | WPDANESPN ---
Anes - Prog Note Post-Op Date/Time: 06/02/23 12:42 Cardiovascular status: normal Respiratory status: normal Airway patency: baseline Mental status: baseline Post-Op hydration status: normal Vital Signs: Last Vital Signs Temp 36.1 C L 06/02/23 05:32 Pulse 60 06/02/23 05:32 Resp 13 06/02/23 05:32 BP 108/45 L 06/02/23 05:32 Pulse Ox 100 06/02/23 05:32 O2 Del Method Room Air 06/02/23 08:00 Pain Score (VAS): 0 I/O: Intake & Output 06/01/23 06/02/23 06/02/23 23:59 07:59 15:59 Intake Total 480 750 240 Balance 480 750 240 Laboratory Tests 06/02/23 05:29 06/01/23 01:50 06/02/23 05:29 WBC 7.8 RBC 4.83 Hgb 8.7 L Hct 32.8 L MCV 67.9 L MCH 18.0 L MCHC 26.5 L RDW 29.5 H Plt Count 231 MPV TNP % Immature Plt Fraction 5.1 Post-procedural complaints: none Patient Feedback: Patient satisfied with anesthetic care.
[2023-06-02] MEDS: IRON SUCROSE COMPLEX 200 MG in SODIUM CHLORIDE 0.9% IV 50 ML 120 MG IVPB (13:04)
[2023-06-02 14:00] VITALS: BP 118/69; PULSE 76; RESP 16; TEMP 36.4; O2SAT 100
--- NOTE | 2023-06-02 15:07 | PM.DS ---
DS: Admitting Diagnosis Discharge Date 06/02/2023 Admitting Diagnosis Shortness of breath/chest pain DS: Discharge Diagnosis Discharge Diagnosis (1) Anemia: Code(s): D64.9 - Anemia, unspecified Status: Acute (2) Occult GI bleeding: Code(s): R19.5 - Other fecal abnormalities Status: Acute (3) Tobacco abuse: Code(s): Z72.0 - Tobacco use Status: Acute DS: Summary Hospital Course Hospital Course: This is a 48-year-old male presented to the ER with complaint of chest pain. Workup revealed severe anemia with hemoglobin of 5.1 repeat was 4.5 he was transfused. He is not on any anticoagulation. His history of alcohol abuse and amphetamine abuse. Anemia as severe microcytic with low iron suggestive of chronic gastrointestinal blood loss. GI was consulted. CT abdomen pelvis revealing a focal small caliber of sigmoid colon which may be transient finding or persistent stricture suspicious for malignancy. EGD on 06/01/2023 showed nonerosive reflux disease with hiatal hernia. Colonoscopy revealed single 5 mm sessile polyp in sigmoid colon appeared benign in nature. Polypectomy was performed. Multiple diverticula was present in descending colon and sigmoid colon. Post transfusion his H&H remained stable. He will be placed on PPI. His advised to take iron tablets regularly for iron deficiency. He will continue to follow up with PCP as an outpatient basis for regular monitoring of his blood counts. Time Spent with Patient Time attestation: Total time spent providing and/or coordinating discharge services: 40 minutes Exam Narrative: GENERAL: Comfortable, no acute distress HENMT: moist mucous membranes EYES: EOM intact b/l NECK: no lymphadenopathy RESPIRATORY: clear to auscultation CARDIO: RRR GI: soft, nontender, bowel sounds present SKIN: no rashes EXTREMITIES: no edema, redness or tenderness DS: Data Data Completed and Pending Pending studies at discharge: Pending at discharge 06/01/23 14:51 Surgical [PTH] Routine Surgical [PTH] Routine Labs on day of discharge: Labs from last 24 hours 06/02/23 05:29 WBC 7.8 RBC 4.83 Hgb 8.7 L Hct 32.8 L MCV 67.9 L MCH 18.0 L MCHC 26.5 L RDW 29.5 H Plt Count 231 MPV TNP % Immature Plt Fraction 5.1 Imaging Radiologist's impression: ITS Impressions Chest X-Ray 05/30/23 16:02 IMPRESSION: 1. No acute cardiopulmonary abnormality. Abdomen/Pelvis CT 05/31/23 09:13 IMPRESSION: 1. Focal small caliber of the sigmoid colon, which may be a transient finding or a persistent stricture suspicious for malignancy. The patient is already scheduled for a colonoscopy. 2. Large sliding hiatal hernia. Upper GI Series w/o Air Contrast 06/01/23 18:28 IMPRESSION: 1. Moderate-sized sliding-type hiatal hernia with recurrent prominent gastroesophageal reflux with provocative maneuvers. Discharge Plan Discharge Attending physician on discharge: Fortunato Torres Consulting providers: Bar Shipman Discharging Clinician: Fortunato Torres Anticipated Discharge Date/Time: 06/02/23 14:52 Patient Disposition: Home, Self-Care Activity: as tolerated Diet: regular Patient Instructions: Antibiotic Form, How to Stop Smoking (DC), Anemia (DC), Colonoscopy (DC), Upper Endoscopy (DC) Stand Alone Forms: General Discharge Information Follow-up/Referrals: Rozina,JOSE ALEJANDRO Maldonado [Primary Care Provider] - 1 Week Discharge Medications: New ferrous sulfate 325 mg (65 mg iron) tablet 325 mg PO TID Qty: 90 0RF pantoprazole [Protonix] 20 mg tablet,delayed release (DR/EC) 20 mg PO QAM Qty: 30 0RF No Action No Home Medications Date of admission: 05/30/23 17:00 Primary Care Provider: DominguezShayy Admitting Provider: Trent Petit Attending physician on admission: Trent Petit Condition: Stable
[2023-06-03 13:59] LABS: Albumin 4.1 g/dL (3.8-4.8); Alpha 1 Globulin 0.3 g/dL (0.2-0.3); Alpha 2 Globulin 0.5 g/dL (0.5-0.9); Beta 1 Globulin 0.6 g/dL (0.4-0.6); Gamma Globulin 1.1 g/dL (0.8-1.7); Protein, Total 6.9 g/dL (6.1-8.1)
[2023-06-03 19:44] LABS: Haptoglobin 45 mg/dL (43-212)
[2023-06-06 00:40] LABS: Creatinine, Random Urine 79 mg/dL (20-320); Total Protein/Creatinine Ratio 51 mg/g creat (25-148)
== END 2023-06-02 16:08 | disposition home or self-care (01) ==
LOC: ANHED 17:00 → ANH3MEDSUR 23:19
PROVIDERS: Internal Medicine; Internal Medicine Critical Care Medicine; Internal Medicine Gastroenterology; Nurse Practitioner; Admitting Provider Hospitalist; Emergency Provider Emergency Medicine; PCP Physician Assistant; Visit Provider Internal Medicine
PROC: 0DJ08ZZ Inspection of Upper Intestinal Tract, Via Natural or Artificial Opening Endoscopic (ICD-10-PCS; CPT 43235; principal; 2023-06-01 15:00)
DX: K21.9 Gastro-esophageal reflux disease without esophagitis (principal); K44.9 Diaphragmatic hernia without obstruction or gangrene; D12.5 Benign neoplasm of sigmoid colon; K57.30 Diverticulosis of large intestine without perforation or abscess without bleeding; D64.9 Anemia, unspecified; D50.9 Iron deficiency anemia, unspecified; Z11.4 Encounter for screening for human immunodeficiency virus [HIV]; R19.5 Other fecal abnormalities; R10.9 Unspecified abdominal pain; R07.9 Chest pain, unspecified; M54.9 Dorsalgia, unspecified; M25.511 Pain in right shoulder; R12 Heartburn; I10 Essential (primary) hypertension; E66.9 Obesity, unspecified; Z68.28 Body mass index [BMI] 28.0-28.9, adult; F17.210 Nicotine dependence, cigarettes, uncomplicated; F15.90 Other stimulant use, unspecified, uncomplicated; F10.90 Alcohol use, unspecified, uncomplicated; F14.90 Cocaine use, unspecified, uncomplicated
CPT/HCPCS: 43239; 45380; 36415; 36430; 71046; 74177; 74240; 80053; 82247; 82248; 82274; 82570; 82607; 82728; 82746; 83010; 83540; 83550; 83605; 83615; 83690; 83735; 84155; 84156; 84165; 84166; 84238; 84443; 84466; 84484; 85014; 85018; 85025; 85027; 85046; 85055; 85610; 85730; 86592; 86703; 86850; 86880; 86900; 86901; 86923; 88305; 88342; 93005; 96361; 96374; 96375; 96376; 99285; A9270; C9113; G0378; G0379; G0432; J1756; J2704; J7030; J7050; J7120; P9016; Q9967